=== PATIENT | female | born 1960 | race Caucasian/White ===

== ENCOUNTER → 2016-05-07 | Outpatient (CLI) | payer OTHER ==
[~2016-05-07] MED LIST: DOCU100C37 PO; HYDR-3816 PO; IBUP-1773 PO; SIME80TA16 PO
--- NOTE | 2016-05-07 14:34 | Diagnostic Imaging Report ---
INDICATION: Postmenopausal bleeding. COMPARISON: None. DISCUSSION: Transabdominal and transvaginal sonographic evaluation of the pelvis was performed. The uterus is normal in size measuring 9.4 x 4.5 x 4.6 cm. There is a large solid mass within the lower uterine segment which measures 5.6 x 4.8 x 3.5 cm. Mass is of uncertain etiology though could represent malignancy or a fibroid. The location is somewhat atypical for a fibroid. Mass obscures evaluation of the endometrium. Neither ovary is visualized. No abnormal adnexal mass or fluid. IMPRESSION: 1. Large solid mass near the lower uterine segment measures 5.6 x 4.8 x 3.5 cm and is of uncertain etiology. Malignancy is not excluded. Tissue sampling is likely indicated. Dictated by: Dictated on workstation # [id number]
== END ==
LOC: RAD 12:43
PROVIDERS: ATTEND Nurse Practitioner Family
DX: N95.0 Postmenopausal bleeding (principal); R10.2 Pelvic and perineal pain
CPT/HCPCS: 76830; 76856

== ENCOUNTER → 2016-05-07 | Outpatient (CLI) | payer OTHER ==
--- NOTE | 2016-05-07 20:33 | Diagnostic Imaging Report ---
EXAM: Digital mammogram, bilateral screening. The current study was also evaluated with a Computer Aided Detection (CAD) system. COMPARISON: This is the patient's baseline study. At this time, there are no current complaints. FINDINGS: The fibroglandular tissue in both breasts is heterogeneously dense. This does limit the sensitivity of this exam. In the 10:00 o'clock position of the right breast, approximately 10 cm from the nipple, there is a small group of microcalcifications. These calcifications do not have a threatening appearance. Even so, as there are no prior studies available for comparison, I would recommend that a compression/magnification view of these calcifications be obtained to better characterize them. There is no primary or secondary sign of malignancy noted otherwise. IMPRESSION: Additional mammographic views of the small group of calcifications in the upper-outer aspect of the right breast would be recommended for further study. ACR category zero. ACR BI-RADS Category 0: Incomplete. (Needs additional imaging evaluation). Result letter will be mailed to the patient. Note: At least 10% of breast cancer is not imaged by mammography. Dictated by: Dictated on workstation # [id number]
== END ==
LOC: RAD 12:46 → EDUNIT# 14:15
PROVIDERS: ATTEND Nurse Practitioner Family
DX: Z12.31 Encounter for screening mammogram for malignant neoplasm of breast (principal); R92.8 Other abnormal and inconclusive findings on diagnostic imaging of breast
CPT/HCPCS: 77067

== ENCOUNTER → 2016-05-17 | Outpatient (CLI) | payer OTHER ==
--- NOTE | 2016-05-17 19:05 | Diagnostic Imaging Report ---
Right breast ultrasound. INDICATION: Calcifications in the outer aspect of the right breast. FINDINGS: Unremarkable breast parenchyma is seen with no focal lesion. IMPRESSION: Negative study. No suspicious lesion to correlate with the lateral breast calcifications seen. Six-month follow-up mammogram is recommended to ensure stability or resolution. ACR BI-RADS Category 3: Probably benign findings. Dictated by: Dictated on workstation # [id number]
--- NOTE | 2016-05-17 19:07 | Diagnostic Imaging Report ---
Right breast diagnostic mammogram. INDICATION: Group of calcifications seen in the upper outer aspect of the right breast. The current study was also evaluated with a Computer Aided Detection (CAD) system. FINDINGS: There is a group of calcifications with minimal heterogeneity and appearance in favor of dystrophic-type calcifications. No associated mass is identified mammographically. IMPRESSION: Group of calcifications with minimal heterogeneity favored to be dystrophic benign calcifications in the upper-outer aspect of the right breast. Ultrasound evaluation to rule out an associated mass is pending. ACR BI-RADS Category 0: Incomplete. (Needs additional imaging evaluation). Result letter will be mailed to the patient. Note: At least 10% of breast cancer is not imaged by mammography. Dictated by: Dictated on workstation # [id number]
== END ==
LOC: RAD 07:50
PROVIDERS: ATTEND Nurse Practitioner Family
DX: R92.0 Mammographic microcalcification found on diagnostic imaging of breast (principal)

== ENCOUNTER 2016-06-10 10:35 | Outpatient (CLI) | payer OTHER ==
[~2016-06-10] VITALS: Ht 172.7 cm; Wt 126.1 kg
[2016-06-10 10:43] VITALS: BP 124/77
[2016-06-10 11:27] LABS: BASOPHILS % (AUTO) 1 % (0-10); EOSINOPHILS # (AUTO) 0.2 10^3/uL (0.0-0.3); EOSINOPHILS % (AUTO) 3 % (0-10); LYMPHOCYTES # (AUTO) 1.8 X 10^3 (1.0-4.0); LYMPHOCYTES % (AUTO) 24 % (12-44); MEAN CORPUSCULAR HEMOGLOBIN 30 PG (25-34); MEAN CORPUSCULAR HGB CONC 33 G/DL (32-36); MEAN CORPUSCULAR VOLUME 93 FL (80-99); MEAN PLATELET VOLUME 9.4 FL (7.4-10.4); MONOCYTES # (AUTO) 0.4 X 10^3 (0.0-1.0); MONOCYTES % (AUTO) 6 % (0-12); NEUTROPHILS # (AUTO) 4.9 X 10^3 (1.8-7.8); NEUTROPHILS % (AUTO) 67 % (42-75); PLATELET COUNT 268 10^3/uL (130-400); RED BLOOD COUNT 4.68 10^6/uL (4.35-5.85); RED CELL DISTRIBUTION WIDTH 12.5 % (10.0-14.5); WHITE BLOOD COUNT 7.3 10^3/uL (4.3-11.0)
[2016-06-15] MEDS ORDERED: IBUP-1773 PO (10:37)
[2016-06-15] MEDS ORDERED: HYDR-3816 PO (10:37)
[2016-06-15] MEDS ORDERED: SIME80TA16 PO (10:37)
[2016-06-15] MEDS ORDERED: DOCU100C37 PO (10:37)
== END 2016-06-10 11:05 | disposition home or self-care (01) ==
LOC: PREOP 10:35
PROVIDERS: ATTEND Obstetrics & Gynecology
DX: Z01.812 Encounter for preprocedural laboratory examination (principal); Z11.2 Encounter for screening for other bacterial diseases; D25.9 Leiomyoma of uterus, unspecified
CPT/HCPCS: 36415; 85025; 86850; 86900; 86901; 87081

== ENCOUNTER 2016-06-13 08:40 | Inpatient (IN) | payer OTHER ==
[~2016-06-13] VITALS: Ht 172.7 cm; Wt 126.1 kg
[2016-06-13 09:00] VITALS: BP 115/77
[2016-06-13] MEDS ORDERED: CATHETER FLUSH 10 ML SYR IV PRN (09:30)
[2016-06-13] MEDS ORDERED: metroNIDAZOLE 500 MG/100 ML IVPB (PRE-MIX) IV ONE (09:30)
[2016-06-13] MEDS ORDERED: ceFAZolin 2 GM/NS 50 ML IV ONE (09:30)
[2016-06-13] MEDS: LACTATED RINGERS 1,000 ML IV PRN ×3 (10:11→14:30)
--- NOTE | 2016-06-13 10:37 | Progress Note-Pre Operative ---
Pre-Operative Progress Note H&P Reviewed The H&P was reviewed, patient examined and no changes noted. Date H&P Reviewed: Jun 14, 2016 Time H&P Reviewed: 10:37 Pre-Operative Diagnosis: Fibroid uterus, pelvic pain, uterine mass YOGESH ALDANA DO Jun 13, 2016 10:37 am
[2016-06-13] MEDS ORDERED: LIDOCAINE PF 2% 10 ML (XYLOCAINE) AMP ONE (11:03)
[2016-06-13] MEDS ORDERED: MIDAZOLAM 2 MG/2 ML (VERSED) VIAL ONE (11:03)
[2016-06-13] MEDS ORDERED: DEXAMETHASONE PF 10 MG/ML (DECADRON) VIAL ONE (11:03)
[2016-06-13] MEDS ORDERED: ONDANSETRON 4 MG/2 ML (SDV) Z0FRAN ONE (11:03)
[2016-06-13] MEDS ORDERED: fentaNYL INJECTION 100 MCG/2 ML AMP ONE ×3 (11:03→14:41)
[2016-06-13] MEDS ORDERED: LACTATED RINGERS 1,000 ML IV ONE (11:03)
[2016-06-13] MEDS ORDERED: proPOfol 200 MG/20 ML (DIPRIVAN) VIAL IV ONE (11:03)
[2016-06-13] MEDS ORDERED: ROCURONIUM 50 MG/5 ML (ZEMURON) VIAL IV ONE (11:03)
[2016-06-13] MEDS ORDERED: BUPIVACAINE 0.25% 30 ML (SENSORCAINE) VIAL ONE (11:15)
[2016-06-13] MEDS ORDERED: BUPIVACAINE 0.5% 30 ML (SENSORCAINE) VIAL ONE (11:15)
[2016-06-13] MEDS ORDERED: LACTATED RINGERS 1,000 ML IV SCH (11:24)
[2016-06-13] MEDS ORDERED: SIMETHICONE 80 MG (MYLICON) CHEW PO PRN (11:30)
[2016-06-13] MEDS ORDERED: ZOLPIDEM 5 MG (AMBIEN) TAB PO PRN (11:30)
[2016-06-13] MEDS ORDERED: CHLORASEPTIC LOZENGE MM PRN (11:30)
[2016-06-13] MEDS ORDERED: ANTACID SUSP 30 ML UDC (MYLANTA) PO PRN (11:30)
[2016-06-13] MEDS ORDERED: morphine INJ 10 MG/ML 1ML (SYR OR VIAL) ONE (11:45)
[2016-06-13] MEDS ORDERED: SEVOFLURANE (ULTANE) 15 ML INHAL SOLN ONE ×10 (11:49→14:25)
[2016-06-13] MEDS ORDERED: GLYCOPYRROLATE 0.2 MG/ML (ROBINUL) 2 ML VIAL ONE (14:28)
[2016-06-13] MEDS ORDERED: NEOSTIGMINE (BLOXIVERZ ) 1 MG/1ML 10 ML VIAL ONE (14:28)
[2016-06-13] MEDS ORDERED: HYDROmorphone (DILAUDID) 2 MG/ML VIAL IVP PRN (15:00)
[2016-06-13] MEDS ORDERED: HYDROmorphone PCA 0.2 MG/ML 30 ML (DILAUDID) IV PRN (15:00)
[2016-06-13] MEDS: ONDANSETRON 4 MG/2 ML (SDV) Z0FRAN IVP PRN ×2 (15:03→15:17)
[2016-06-13] MEDS: morphine INJ 10 MG/ML 1ML (SYR OR VIAL) IVP PRN ×2 (15:14→15:21)
[2016-06-13 16:00] VITALS: BP 129/81
[2016-06-13] MEDS: KETOROLAC 30 MG/ML VIAL IV PRN (17:33)
[2016-06-13] MEDS: D5 LR IV SOLUTION 1,000 ML IV SCH (17:33)
[2016-06-13 17:35] VITALS: BP 136/80
[2016-06-13] MEDS ORDERED: ONDANSETRON 4 MG/2 ML (SDV) Z0FRAN IVP PRN (18:00)
[2016-06-13] MEDS: ONDANSETRON 4 MG/2 ML (SDV) Z0FRAN IV PRN ×2 (18:14→22:08)
[2016-06-13] MEDS ORDERED: PROMETHAZINE INJ 25 MG/ML (PHENERGAN) AMP IVP PRN ×2 (18:30→23:00)
[2016-06-13 20:43] VITALS: BP 165/94
[2016-06-14] VITALS: BP 118/72
[2016-06-14] MEDS ORDERED: KETOROLAC 30 MG/ML VIAL ONE (02:01)
[2016-06-14] MEDS: D5 LR IV SOLUTION 1,000 ML IV SCH (02:10)
[2016-06-14] MEDS: KETOROLAC 30 MG/ML VIAL IV PRN (02:10)
[2016-06-14 04:45] VITALS: BP 122/78
[2016-06-14 07:42] VITALS: BP 98/63
[2016-06-14] MEDS: DOCUSATE SODIUM 100 MG (COLACE) CAP PO PRN (08:53)
[2016-06-14] MEDS: IBUPROFEN 600 MG (MOTRIN) TAB PO PRN ×3 (08:53→20:39)
[2016-06-14 10:41] LABS: BASOPHILS % (AUTO) 0 % (0-10); EOSINOPHILS % (AUTO) 0 % (0-10); LYMPHOCYTES # (AUTO) 1.1 X 10^3 (1.0-4.0); LYMPHOCYTES % (AUTO) 7 % (12-44); MEAN CORPUSCULAR HEMOGLOBIN 30 PG (25-34); MEAN CORPUSCULAR HGB CONC 32 G/DL (32-36); MEAN CORPUSCULAR VOLUME 94 FL (80-99); MEAN PLATELET VOLUME 9.2 FL (7.4-10.4); MONOCYTES # (AUTO) 1.3 X 10^3 (0.0-1.0); MONOCYTES % (AUTO) 8 % (0-12); NEUTROPHILS # (AUTO) 14.4 X 10^3 (1.8-7.8); NEUTROPHILS % (AUTO) 85 % (42-75); PLATELET COUNT 227 10^3/uL (130-400); RED BLOOD COUNT 4.06 10^6/uL (4.35-5.85); RED CELL DISTRIBUTION WIDTH 12.6 % (10.0-14.5); WHITE BLOOD COUNT 16.9 10^3/uL (4.3-11.0)
--- NOTE | 2016-06-14 10:44 | Progress Note-Standard ---
Standard Progress Note Progress Notes/Assess & Plan Progress/Assessment & Plan Patient had MICKI-BSO yesterday. Converted from [facility] due to bleeding. 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 Had prolonged bleeding after Dilation and curettage (800 ml). Has not required that the SURGICAL ONCOLOGIST be started. Only using toradol, now motrin. Has ambulated x 2. UA decreased and no void since catheter out. Has ambulated x 2 already. Vital Sign - Last 12Hours 06/14/16 06/14/16 06/14/16 06/14/16 00:00 02:07 04:45 06:13 Temp 97.4 97.4 Pulse 62 70 Resp 10 13 B/P (MAP) 118/72 122/78 Pulse Ox 97 98 96 98 O2 Delivery Nasal Cannula Nasal Cannula O2 Flow Rate 2.00 2.00 2.00 2.00 06/14/16 06/14/16 07:42 10:30 Temp 96.6 Pulse 57 Resp 22 B/P (MAP) 98/63 Pulse Ox 99 99 O2 Delivery Nasal Cannula O2 Flow Rate 2.00 2.00 Intake and Output 06/14/16 00:00 Intake Total 2050 ml Output Total 325 ml Balance 1725 ml Vital Signs 06/14/16 06/14/16 07:42 10:30 Temp 96.6 Pulse 57 Resp 22 B/P (MAP) 98/63 Pulse Ox 99 O2 Delivery Nasal Cannula O2 Flow Rate 2.00 Laboratory Tests Test 06/13/16 15:10 06/14/16 10:34 Range/Units Glucometer 190 H 70-110 MG/DL White Blood Count 16.9 H 4.3-11.0 10^3/uL Red Blood Count 4.06 L 4.35-5.85 10^6/uL Hemoglobin 12.3 11.5-16.0 G/DL Hematocrit 38 35-52 % Mean Corpuscular Volume 94 80-99 FL Mean Corpuscular Hemoglobin 30 25-34 PG Mean Corpuscular Hemoglobin Concent 32 32-36 G/DL Red Cell Distribution Width 12.6 10.0-14.5 % Platelet Count 227 130-400 10^3/uL Mean Platelet Volume 9.2 7.4-10.4 FL Neutrophils (%) (Auto) 85 H 42-75 % Lymphocytes (%) (Auto) 7 L 12-44 % Monocytes (%) (Auto) 8 0-12 % Eosinophils (%) (Auto) 0 0-10 % Basophils (%) (Auto) 0 0-10 % Neutrophils # (Auto) 14.4 H 1.8-7.8 X 10^3 Lymphocytes # (Auto) 1.1 1.0-4.0 X 10^3 Monocytes # (Auto) 1.3 H 0.0-1.0 X 10^3 Eosinophils # (Auto) 0.0 0.0-0.3 10^3/uL Basophils # (Auto) 0.0 0.0-0.1 10^3/uL Neutrophils % (Manual) 86 % Lymphocytes % (Manual) 6 % Monocytes % (Manual) 8 % Eosinophils % (Manual) 0 % Basophils % (Manual) 0 % Band Neutrophils 0 % Blood Morphology Comment NORMAL Sodium Level 142 135-145 MMOL/L Potassium Level 4.1 3.6-5.0 MMOL/L Chloride Level 106 98-107 MMOL/L Carbon Dioxide Level 27 21-32 MMOL/L Anion Gap 9 5-14 MMOL/L Blood Urea Nitrogen 8 7-18 MG/DL Creatinine 0.74 0.60-1.30 MG/DL Estimat Glomerular Filtration Rate > 60 BUN/Creatinine Ratio 11 Glucose Level 120 H 70-105 MG/DL Calcium Level 8.6 8.5-10.1 MG/DL Alert and oriented Lungs CTA Heart RRR Abdomen soft, inc C/D/I, Few BS. Assessment: POD #1 s/p MICKI-BSO Venus: routine post op. encourage ambulation and po fluids. Will restart IVF if UA remains decreased. Plan discharge Friday or Friday. MU HORNE DO Jun 14, 2016 10:44
[2016-06-14 10:57] LABS: ANION GAP 9 MMOL/L (5-14); BLOOD UREA NITROGEN 8 MG/DL (7-18); BUN/CREATININE RATIO 11; CALCIUM 8.6 MG/DL (8.5-10.1); CARBON DIOXIDE 27 MMOL/L (21-32); CHLORIDE 106 MMOL/L (98-107); CREATININE SERUM 0.74 MG/DL (0.60-1.30); GFR ESTIMATED > 60; GLUCOSE 120 MG/DL (70-105); POTASSIUM 4.1 MMOL/L (3.6-5.0); SODIUM 142 MMOL/L (135-145)
[2016-06-14 11:04] LABS: BAND NEUTROPHILS 0 %; BASOPHILS % (MANUAL) 0 %; EOSINOPHILS % (MANUAL) 0 %; LYMPHOCYTES % (MANUAL) 6 %; NEUTROPHILS % (MANUAL) 86 %
--- NOTE | 2016-06-14 11:05 | OPERATIVE REPORT ---
PROCEDURE PHYSICIAN: VALDEZ BACA DATE OF PROCEDURE: 06/13/2016 PREOPERATIVE DIAGNOSIS: 1. Fibroid uterus. 2. Uterine mass. 3. Pelvic pain. POSTOPERATIVE DIAGNOSIS: 1. Fibroid uterus. 2. Uterine mass. 3. Pelvic pain. 4. 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 PROCEDURE: D\T\C with frozen section, total abdominal hysterectomy with bilateral salpingo-oophorectomy conversion from robotic assisted total laparoscopic hysterectomy with partial omentectomy. SURGEON: Dr. Valdez Baca INTRAOPERATIVE CONSULTATION MADE TO: Dr. Perez GEOLOGIST PETROLEUM: Lisa Mcneil APRN. ANESTHESIA: General endotracheal. ESTIMATED BLOOD LOSS: 800 mL URINE OUTPUT: 75 mL. FLUIDS: 2100 mL of lactated ringer solution. FINDINGS: Findings is with a uterus with an apparent cervical mass that is bulky and a significant amount of vaginal bleeding noted after endometrial tissue sampling. Grossly normal appearing bilateral ovaries and fallopian tubes, filmy adhesions of the pelvic peritoneum and dense caked feeling omentum with no evidence of excrescences or carcinomatosis. SPECIMEN SENT: Uterus, bilateral fallopian tubes, and ovaries and partial omentectomy biopsy. INDICATIONS FOR THE PROCEDURE: This patient was a consultation to me from the [facility] for finding of pelvic mass and increasing pelvic discomfort. On ultrasound she was found to have a pelvic mass suggestive of a possible fibroid as well as slightly thickened endometrium. However not significantly thickened. Due to her age I recommended an endometrial biopsy, which I attempted to perform in the office and was unable to do so with endometrial biopsy Pipelle. I could not pass it past the internal cervical os and when the pathology came back it came back as insufficient for sampling. I then discussed with the patient after I had these results proceeding with robotic assisted hysterectomy with bilateral salpingo-oophorectomy. I discussed with the patient prior to proceeding with this, I would perform a D\T\C frozen section to find if there is any significant signs of carcinoma or cancer which may need a follow-up procedure or further staging. I demonstrated my reasoning for this to the patient and she seemed to understand at the time of preoperative consultation. I discussed the patient the potential for bleeding, infection, damaging any of the surrounding structures, including but not limited to the bowel, bladder, ureter, kidneys, need for subsequent procedures any of these damages should occur. Need for possible blood transfusion, even , risk from anesthesia were all discussed with the patient. After all of her questions were answered consent was obtained and patient was taken the operating room. OPERATIVE REPORT IN DETAIL: Once in the operating room, general anesthesia was found to be adequate. She was placed in dorsal lithotomy position, prepped and draped in normal sterile fashion. She is first examined under anesthesia. The uterus is difficult to palpate due to patient's body habitus; I am unable to palpate either ovaries as well. The cervix palpates as smooth. I placed a weighted speculum into the vagina. A right angle retractor was used to visualize the cervix. It was grasped at the 12 o'clock position using a single tooth tenaculum. I then gently sound the uterine cavity depth and it was found to be 8 cm. I then proceed with curetting the endometrium. Long strands of soft tissue is collected while doing so and send this for frozen section, after which when waiting for frozen section, the patient significantly starts bleeding from the cervix. Frozen section is called into me by Dr. Pfeiffer who says that there is evidence of complex hyperplasia with atypia and potential for invasive disease. I was going to proceed with completing the procedure and referred her on to oncology however, due to her ongoing significant bleeding I decided to proceed with hysterectomy as scheduled knowing that she may need a further staging procedure. I discussed this with a INDUSTRIAL MAINTENANCE TECHNICIAN oncologist Dr. Alvarez, I called him myself prior to starting the procedure and he felt that this management was appropriate as well due to her bleeding. I then place a CARLO uterine manipulator into the endometrium and deploy the balloon 8 cm. The uterine manipulator is used and a 3.5 cm colpotomy ring is advance around the vaginal fornix. I then take my attention to the abdomen where infraumbilically I infiltrate this area using Marcaine, make an 8 mm incision and direct a Veress needle through this incision until intraperitoneal placement is confirmed using saline drop test. I proceed with insufflation using CO2 gas, opening pressure of 5 mmHg is noted. I proceed to maximum pressure of 15 mmHg at which point I remove the Veress needle, introduced a blunt da Luke camera trocar through this incision. I then placed 2 lateral trocars, after I confirm intraperitoneal placement using da Luke scope. These are both 8 mm incisions. Once these are in place and the trocars are directed under visualization of the laparoscope I bring the da Luke robot and dock it in the appropriate fashion. Once the robot is docked, I placed the da Luke vessel sealer in the left hand and monopolar fareed in the right hand and proceed with performing the following dissection: the filmy adhesions are taken down using the monopolar fareed without any significant bleeding noted. I then proceed with the following dissection bilaterally: I start at the infundibulopelvic ligament, I bipolar cauterize this and transect it using the vessel sealer. I take this down to the level of the lower uterine segment. After grasping the round ligament in a similar fashion, bipolar cauterize this and transect it using monopolar fareed. The broad ligament is then encountered on my way down to the lower uterine segment. The anterior posterior leaflets are then and the anterior leaflet is taken around to the anterior vaginal fornix, posterior leaflet around the posterior vaginal fornix. I am able to perform a colpotomy at the 12 o'clock position, however, difficulty and skeletonizing the uterine vessels due to this mass and its pressure upon the uterine vessels. Ended up running into a significant amount of bleeding to the point where I cannot control it using the da Luke robot and my dissection planes are not clear. Due to this I decide to undock the da Luke robot and perform a laparotomy. I start this by removing the da Luke and the trocars. I then proceed with making a Pfannenstiel skin incision using a knife and carried down to the underlying fascia using Bovie cautery. The fascial incision is extended laterally using Bovie cautery. Superior aspect of the fascia was then grasped with Mathew clamps, tented upward and dissected off the underlying rectus muscles. The inferior aspect of the fascial incision was then grasped with Mathew clamps, tented upward and dissected off the underlying rectus muscles. The rectus muscles are dissected down the midline using Benites scissors which exposes the peritoneum which I enter bluntly using my fingers. Once in the peritoneal cavity I expand this bluntly and place an Steven'Blank-O'Paul self-retaining retractor into the peritoneal incision padding sidewalls as I place them on the sidewalls I use a bladder retraction blade and pack the bowel back using 2 separate sponges. I then am able to isolate my dissection was taking place and using a LigaSure impact, am able to stabilize the bleeding of the lateral uterine vessels. I then complete my colpotomy around the vaginal fornix using the LigaSure impact, and remove the cervix with its tumor in the lower uterine segment and the uterus and bilateral fallopian tubes, and ovaries and send this for permanent section. There is a bleeding noted from the right cardinal ligament which is oversewn using 3-0 Vicryl suture in a running lock fashion which controls the bleeding, after which there is no active bleeding noted from any of my dissection planes. I then proceed with closing the vaginal cuff using 2-0 Vicryl suture in the lateral vaginal apices, colposuspending them to the uterosacral ligaments. I then close the middle portion of the vaginal cuff using 0 Vicryl suture in an interrupted [id number] fashion, after which no active bleeding is noted from any my dissection planes. I then copiously irrigate the pelvis using normal saline. Once again, no active bleeding is noted. I place FloSeal over my planes of dissection to ensure postoperative hemostasis. I then remove the packing from the upper abdomen due to hemostasis and decision to close the patient. Upon evaluation of the upper abdomen on palpation I do identify that there is some thickening of the omentum. I have Dr. Hensley come in and evaluate the patient. He just feels no abnormalities of the serosal surface of the intraperitoneal structures, however, agrees with doing a partial omentectomy, which I perform at that time using the LigaSure by isolating this thickened portion of the omentum and taking the LigaSure across it. There is no active bleeding noted from my transection point on the omentum after this is done. I then proceed with closing the patient. I start by closing the peritoneum using 3-0 Vicryl suture in a running fashion. The rectus muscles were approximated using 3-0 Vicryl suture in an interrupted fashion. The fascia is reapproximated using 0 Vicryl suture in a running fashion. The subcutaneous tissues were reapproximated using 3-0 plain in an interrupted subcutaneous stitch. The skin is reapproximated using frederick. This is dressed using a Telfa and ADD and white tape. I then close the trocar incisions using the frederick as well. These are covered with Band-Aids. Garcia catheter was left in place. The patient tolerated the procedure well and was taken to the recovery area in stable condition. Lap and sponge counts correct at the end of the procedure. Instrument count is correct as well. 2 grams of Ancef and 500 mg of Flagyl given preoperatively for infection prophylaxis. Job ID: [id number] Dictated Date: 06/13/2016 17:02:41 Atmospheric Drier Tender Date: 06/14/2016 10:29:23 / alfonso
[2016-06-14 12:00] VITALS: BP 104/67
[2016-06-14] MEDS: HYDROcodone/APAP 7.5 MG/325 MG (LORTAB, LORCET PLUS) TABLET PO PRN (13:05)
--- NOTE | 2016-06-14 13:09 | Progress Note-Post Operative ---
Post-Operative Progess Note Surgeon (s)/Crepe Maker (s) Surgeon TATA ZURITA MD Crepe Maker: none Pre-Operative Diagnosis Fibroid uterus, pelvic pain, uterine mass Post-Operative Diagnosis mild focal thickening distal omentum, most likely reactive. no visceral or parietal peritoneal abnormalities. Post-Op Procedure Note Date of Procedure: Jun 13, 2016 Name of Procedure Performed: diagnostic laparotomy. Description of the Procedure: diagnostic laparotomy. Findings of the Procedure . Anesthesia Type GET Estimated blood loss (mL): see primary OP note Specimen(s) collected/removed distal omentum per TATA Guan MD Jun 14, 2016 1:09 pm
--- NOTE | 2016-06-14 14:03 | Anesthesia-General Post-Op ---
General Patient Condition Mental Status/LOC: Same as Preop Cardiovascular: Satisfactory Nausea/Vomiting: Absent Respiratory: Satisfactory Pain: Controlled Complications: Absent Post Op Complications Complications None Follow Up Care/Instructions Patient Instructions None needed. Anesthesia/Patient Condition Patient Condition Patient is doing well, some incisional pain which is expected, stable vital signs, no apparent adverse anesthesia problems. EDA LIM DO Jun 14, 2016 14:03
[2016-06-14 15:58] VITALS: BP 105/65
[2016-06-15] MEDS: IBUPROFEN 600 MG (MOTRIN) TAB PO PRN ×3 (03:09→14:56)
[2016-06-15 03:10] VITALS: BP 124/75
[2016-06-15 08:11] VITALS: BP 107/75
[2016-06-15] MEDS: HYDROcodone/APAP 7.5 MG/325 MG (LORTAB, LORCET PLUS) TABLET PO PRN (09:25)
--- NOTE | 2016-06-15 09:58 | Progress Note-Standard ---
Standard Progress Note Progress Notes/Assess & Plan Progress/Assessment & Plan Urine output slow yesterday but improved overnight. No flatus or BM yet. little bit of gas. No ambulation yet today. Rare pain medication usage. Vital Sign - Last 12Hours 06/15/16 06/15/16 03:10 08:11 Temp 98.2 96.9 Pulse 58 60 Resp 18 18 B/P (MAP) 124/75 107/75 Pulse Ox 93 94 O2 Delivery Room Air Room Air Intake and Output 06/15/16 00:00 Intake Total 430 ml Output Total 160 ml Balance 270 ml Inc - C/D/I frederick intact + hypoactive bowel sounds Assessment: POD #1 s/P MICKI-BSO If tolerates lunch without nausea will dc home. Instructions given. MU HORNE DO Jun 15, 2016 09:58
[2016-06-15] MEDS ORDERED: DOCU100C37 PO (10:37)
[2016-06-15] MEDS ORDERED: IBUP-1773 PO (10:37)
[2016-06-15] MEDS ORDERED: HYDR-3816 PO (10:37)
[2016-06-15] MEDS ORDERED: SIME80TA16 PO (10:37)
--- NOTE | 2016-06-15 10:39 | Discharge Inst-Women's Service ---
Discharge Inst-Women's Serv Depart Medication/Instructions New, Converted or Re-Newed RX: RX on Chart Final Diagnosis uterine mass abnormal bleeding pelvic pain s/p MICKI-BSO Consults/Follow Up Additional Follow Up: Yes (Mondy to have frederick removed) Activity Activity: Activity as Tolerated (no lifting over 25 lbs. No driving for 1 week. nothing in vagina) NO SMOKING: NO SMOKING Nothing Inside Vagina: No Douching, No [place], No Tampons Diet Discharge Diet: No Restrictions Symptoms to Report to : Swelling Increased, Bleeding Excessive, Pain Increased, Fever Over 101 Degrees F, Vaginal Bleeding Increase, Vaginal Discharge Foul For Any Problems or Questions: Contact Your Physician Skin/Wound Care Infection Signs and Symptoms: Increased Redness, Foul Odor of Wound, Increased Drainage, Skin Itchy or Has a Rash, Increased Swelling, Temperature Above 101 F Operative Area Clean and Dry: Keep Incision Clean/Dry Stitches/Frederick/Dermabond: Care of Idalia Bathing Instructions: MU Gregory DO Jun 15, 2016 10:39
[2016-06-15] MEDS: DOCUSATE SODIUM 100 MG (COLACE) CAP PO PRN (13:47)
[2016-06-15 13:48] VITALS: BP 108/63
--- NOTE | 2016-06-17 12:00 | OPERATIVE REPORT ---
PROCEDURE PHYSICIAN: TATA HENSLEY DATE OF PROCEDURE: 06/13/2016 ATTENDING PHYSICIAN: Dr. Valdez Baca. PREOPERATIVE DIAGNOSIS: 1. Fibroid uterus. 2. Uterine mass. 3. Pelvic pain. POSTOPERATIVE DIAGNOSES: 1. Fibroid uterus. 2. Uterine mass. 3. Pelvic pain. 4. Polypoid appearing tissue on frozen section suggestive of hyperplasia and atypia. 5. There was also atypical appearance of the omentum. PROCEDURE: 1. Total abdominal hysterectomy, bilateral salpingo-oophorectomy and partial omentectomy by Dr. Baca. 2. My portion was a diagnostic laparotomy. SURGEON: Dr. Hensley. PRIMARY SURGEON: Dr. Baca. PUBLIC POLICY ANALYST: Lisa Mcneil APRN. ANESTHESIA: General endotracheal. ESTIMATED BLOOD LOSS: 815 mL. FINDINGS: 1. Overall thickened omentum, however, this may have been due to increased BMI and obesity. At the distal portion the omentum, there were some nodular changes; however, this was more than likely to be reactive from her previous endometrial biopsy. 2. The small bowel and colon, what was visualized, and palpated were normal. 3. The liver was palpated and appeared normal with no palpable masses. 4. The gallbladder was present with a slightly thickened gallbladder wall; however, no stones palpated. 5. The stomach was intact with no tumors, and NG tube tip was in the proper position. 6. The spleen was palpable and appeared normal. DISPOSITION: The patient tolerated the procedure well. Ms. Mica Pinon is a 55-year-old female patient of Dr. Baca. The history reports that she was found to have a pelvic mass and also had increasing pelvic discomfort. An ultrasound was performed, which did show the mass suggestive of possible fibroid as well slightly thickened endometrium. She underwent an endometrial biopsy, however, the pathology came back as insufficient sampling. These findings were discussed with the patient and she was then scheduled for a robotic assisted hysterectomy and bilateral salpingo-oophorectomy. During this process, there was a significant amount of polypoid appearing tissue with bleeding as well. There was an abnormality also detected within greater omentum. We were asked to evaluate with diagnostic laparotomy intraoperatively. The patient was already placed in Trendelenburg position with what appeared to be a lower abdominal transverse Pfannenstiel incision. Retractors were in place. The pelvis appeared normal with intact previous hysterectomy. There was no active bleeding identified. The omentum was completely palpated. At the most distal portion of omentum, there was a slight thickening as well as possible nodularity and edema. This appeared to be more reactive from her previous endometrial biopsy attempts. There did not appear to be any visceral peritoneal studding or masses, or carcinomatosis or any solid masses within the omentum. Dr. Baca then underwent a partial omentectomy. The remainder of the omentum was then palpated with thickness identified, however, this was most likely due to increased body mass index and obesity. The colon was palpated and appeared normal with no palpable masses. Small bowel was palpated again with no masses palpated. The liver was then palpated with no peritoneal carcinomatosis studding along the right or left dome of the liver. There were no palpable masses within the parenchyma of the liver. The gallbladder was palpable with slight thickening. However, there were no stones. The stomach appeared normal with no palpable masses within the stomach. The tip of the oral gastric tube appeared to be the stomach antrum. The spleen was palpable and appeared normal. No other parietal peritoneal lesions identified and all surfaces were smooth with no abnormal implants identified. The patient was then turned back over to Dr. Baca for completion of the procedure. The patient tolerated the procedure well from our perspective. We will allow for postoperative management with Dr. Baca. Job ID: [id number] Dictated Date: 06/14/2016 13:06:07 Nurse Head Date: 06/17/2016 11:45:03 / sim ANN
== END 2016-06-15 15:30 | disposition home or self-care (01) | DRG 740 ==
LOC: SDC 08:40 → WS 15:00 → SDC 15:00 → WS 15:01 → UNDOADMIN 15:01 → WS 16:28 → UNDODISIN 06-15 15:30
PROVIDERS: ADMIT Obstetrics & Gynecology; ATTEND Obstetrics & Gynecology
PROC: 0UT70ZZ Resection of Bilateral Fallopian Tubes, Open Approach (ICD-10-PCS; 2016-06-13)
PROC: 0UTC0ZZ Resection of Cervix, Open Approach (ICD-10-PCS; 2016-06-13)
PROC: 0DBS0ZZ (ICD-10-PCS; 2016-06-13)
PROC: 0UDB7ZX Extraction of Endometrium, Via Natural or Artificial Opening, Diagnostic (ICD-10-PCS; 2016-06-13)
PROC: 0WJP0ZZ Inspection of Gastrointestinal Tract, Open Approach (ICD-10-PCS; 2016-06-13)
PROC: 8E0W4CZ Robotic Assisted Procedure of Trunk Region, Percutaneous Endoscopic Approach (ICD-10-PCS; 2016-06-13)
PROC: 0UT90ZZ Resection of Uterus, Open Approach (ICD-10-PCS; principal; 2016-06-13 11:25)
PROC: 0UT20ZZ Resection of Bilateral Ovaries, Open Approach (ICD-10-PCS; 2016-06-13 11:25)
DX: C53.0 Malignant neoplasm of endocervix (principal); N99.61 Intraoperative hemorrhage and hematoma of a genitourinary system organ or structure complicating a genitourinary system procedure; N80.0 Endometriosis of uterus; D25.9 Leiomyoma of uterus, unspecified; E66.01 Morbid (severe) obesity due to excess calories; Z68.41 Body mass index [BMI] 40.0-44.9, adult; F32.9 Major depressive disorder, single episode, unspecified; F41.9 Anxiety disorder, unspecified; Z87.891 Personal history of nicotine dependence; Z53.31 Laparoscopic surgical procedure converted to open procedure
CPT/HCPCS: 36415; 80048; 82962; 84703; 85007; 85027; 86920; 88305; 88307; 88309; 88331; 88341; 88342; 94664; 94760